=== PATIENT | female | born 1965 | race Caucasian/White ===

== ENCOUNTER 2023-07-12 00:49 | Inpatient (IN) | payer MEDICARE, OTHER ==
[~2023-07-12] VITALS: Ht 165.1 cm; Wt 74.8 kg
[2023-07-12] MEDS ORDERED: APIX5TAB PO (01:16)
[2023-07-12] MEDS ORDERED: ASPI81TA31 PO (01:16)
[2023-07-12] MEDS ORDERED: GABA-532 PO (01:16)
[2023-07-12] MEDS ORDERED: ATOR20TA PO (01:16)
[2023-07-12] MEDS ORDERED: METO25TA6 PO (01:16)
[2023-07-12] MEDS ORDERED: GABA600T12 PO (01:16)
[2023-07-12] MEDS ORDERED: DILT180T11 PO (01:16)
[2023-07-12] MEDS ORDERED: HYDR25TA4 PO (01:16)
[2023-07-12] MEDS ORDERED: ALPR1TAB7 PO (01:16)
[2023-07-12] MEDS ORDERED: LEVE750T4 PO (01:16)
[2023-07-12] MEDS ORDERED: ROPI1TAB6 PO (01:16)
[2023-07-12] MEDS ORDERED: FAMO-132 PO (01:16)
[2023-07-12] MEDS ORDERED: TIZA4TAB5 PO (01:16)
[2023-07-12] MEDS ORDERED: CIPR7.5D EACH EAR (01:16)
[2023-07-12] MEDS ORDERED: FURO40TA5 PO (01:16)
[2023-07-12] MEDS ORDERED: FLUT1BLS IH (01:16)
[2023-07-12] MEDS ORDERED: SERT100T PO (01:16)
[2023-07-12 01:59] LABS: BASOPHILS % (AUTO) 0.6 % (0.0-2.0); EOSINOPHILS # (AUTO) 0.1 K/uL (0.0-0.7); EOSINOPHILS % (AUTO) 0.7 % (0.0-7.0); HEMATOCRIT 38.3 % (31.2-41.9); HEMOGLOBIN 12.3 g/dL (10.9-14.3); LYMPHOCYTES % (AUTO) 12.6 % (20.5-51.5); MEAN CORPUSCULAR HEMOGLOBIN 28.9 uug (24.7-32.8); MEAN CORPUSCULAR HGB CONC 32 g/dL (32.3-35.6); MONOCYTES # (AUTO) 0.6 K/uL (0.1-1.30); NEUTROPHILS # (AUTO) 6.3 K/uL (1.8-8.9); NEUTROPHILS % (AUTO) 78.1 % (38.5-71.5); PLATELET COUNT (AUTO) 207 K/uL (179-408); RED BLOOD CELL COUNT(AUTO) 4.26 MIL/uL (3.63-4.92); RED CELL DISTRIBUTION WIDTH 15.1 % (12.3-17.7)
[2023-07-12] MEDS ORDERED: DILTIAZEM HCL IV 125 MG in IV NORMAL SALINE 100 ML IV PRN (02:00)
[2023-07-12] MEDS ORDERED: DILTIAZEM HCL 50 MG IV ONE (02:03)
[2023-07-12] MEDS ORDERED: DILTIAZEM HCL 25 MG IV ONE (02:03)
[2023-07-12 02:08] LABS: DIFFERENTIAL COMMENT 1
[2023-07-12 02:16] LABS: CALCIUM 8.9 mg/dL (8.5-10.1); CARBON DIOXIDE 24 mmol/L (21-32); CHLORIDE 106 mmol/L (98-107); CREATININE 1.2 mg/dL (0.6-1.3); GLUCOSE 91 mg/dL (74-106); POTASSIUM 3.7 mmol/L (3.5-5.1); SODIUM SERUM 140 mmol/L (136-145); UREA NITROGEN, BLOOD 33 mg/dL (7-18)
[2023-07-12 02:17] LABS: ETHANOL < 3 MG/DL (0-10)
[2023-07-12 02:28] LABS: ACETAMINOPHEN < 2.0 ug/mL (10-30); ALANINE AMINOTRANSFERASE 47 U/L (14-59); ALBUMIN 3.4 g/dL (3.4-5.0); ALKALINE PHOSPHATASE 102 U/L (50-136); ASPARTATE AMINOTRANSFERASE 55 U/L (15-37); BILIRUBIN,TOTAL 1.1 mg/dL (0.2-1.0); TOTAL PROTEIN, SERUM 6.8 g/dL (6.4-8.2)
[2023-07-12 03:26] LABS: *BLOOD, URINE NEGATIVE (NEGATIVE); *CLARITY,URINE CLEAR (CLEAR); *COLOR,URINE YELLOW (YELLOW); *KETONES,URINE TRACE (NEGATIVE); *PROTEIN,URINE 2+ (NEGATIVE); LEUKOCYTE ESTERASE ,URINE NEGATIVE (NEGATIVE); NITRITE, URINE NEGATIVE (NEGATIVE); PH,URINE 5.5 (5.0-8.0); UGLUCOSE NEGATIVE (NEGATIVE)
[2023-07-12 03:35] LABS: *BILIRUBIN,URIN 1+ (NEGATIVE)
[2023-07-12 04:31] LABS: *AMPHETAMINE, URINE POSITIVE (NEGATIVE); *BENZODIAZEPINE, URINE NEGATIVE (NEGATIVE); *CANNABINOID, URINE NEGATIVE (NEGATIVE); *COCCAINE, URINE NEGATIVE (NEGATIVE); *OPIATE, URINE POSITIVE (NEGATIVE); *PHENCYCLIDINE SCREEN,URINE NEGATIVE (NEGATIVE)
[2023-07-12 04:35] LABS: FENTANYL, URINE NEGATIVE (NEGATIVE)
[2023-07-12 06:16] LABS: *BARBITURATE, URINE NEGATIVE (NEGATIVE)
[2023-07-12] MEDS ORDERED: MAGNESIUM SULFATE/D5W 100 ML IV SCH (06:30)
[2023-07-12] MEDS ORDERED: MAGNESIUM SULFATE/D5W 100 ML ONE (06:38)
[2023-07-12] MEDS ORDERED: DILTIAZEM HCL CD 120 MG CAP.SR.24H PO ONE (09:12)
[2023-07-12] MEDS: DILTIAZEM HCL CD 120 MG CAP.SR.24H PO SCH (09:33)
[2023-07-12] MEDS ORDERED: IPRATROPIUM BROMIDE 0.5 MG/2.5 ML NEBU NEB PRN (15:30)
[2023-07-12] MEDS ORDERED: ALBUTEROL SULFATE 2.5 MG/3 ML NEBU NEB PRN (15:30)
[2023-07-12 16:20] VITALS: O2SAT 99
[2023-07-12] MEDS ORDERED: DILTIAZEM HCL 25 MG IV IV ONE (18:30)
[2023-07-12 18:53] VITALS: BP 138/96; TEMP 97.7; O2SAT 96
[2023-07-12 20:00] VITALS: BP 136/73; TEMP 97.7; O2SAT 97
[2023-07-12] MEDS ORDERED: LEVALBUTEROL HCL NEB 0.63 MG/3 ML NEBU NEB PRN (22:45)
[2023-07-12 23:25] VITALS: O2SAT 97
[2023-07-12 23:40] VITALS: O2SAT 97
[2023-07-13] VITALS: BP 142/70; TEMP 98; O2SAT 97
[2023-07-13 04:00] VITALS: BP 144/84; TEMP 98; O2SAT 97
[2023-07-13] MEDS: DILTIAZEM HCL CD 120 MG CAP.SR.24H PO SCH (09:26)
[2023-07-13] MEDS ORDERED: ALBUTEROL SULFATE 2.5 MG/3 ML NEBU NEB PRN (09:30)
[2023-07-13] MEDS ORDERED: risperiDONE 0.5 MG TABLET PO SCH (10:00)
[2023-07-13] MEDS: OXCARBAZEPINE 150 MG TABLET PO SCH ×2 (11:29→17:23)
[2023-07-13 12:00] VITALS: BP 153/66; O2SAT 95
[2023-07-13] MEDS ORDERED: DILTIAZEM HCL 90 MG TABLET PO ONE (12:00)
[2023-07-13] MEDS ORDERED: OXCA150T5 PO (12:03)
[2023-07-13] MEDS ORDERED: DILT120C87 PO (12:03)
[2023-07-13] MEDS ORDERED: DILTIAZEM HCL CD 120 MG CAP.SR.24H PO ONE (12:15)
[2023-07-13 14:06] VITALS: BP 140/75; TEMP 98; O2SAT 97
[2023-07-13 16:00] VITALS: BP 132/74; TEMP 98; O2SAT 96
[2023-07-13] MEDS ORDERED: OXCARBAZEPINE 150 MG TABLET PO SCH (17:00)
[2023-07-14] MEDS ORDERED: DILTIAZEM HCL CD 180 MG CAP.SR.24H PO SCH (09:00)
== END 2023-07-13 19:00 | DRG 918 ==
LOC: ER 00:57 → UNDOADMIN 09:13 → TRANSITION 09:13 → TELE3 17:05
PROVIDERS: ADMIT Nurse Practitioner Acute Care; ATTEND Nurse Practitioner Acute Care
DX: T43.651A Poisoning by methamphetamines accidental (unintentional), initial encounter (principal); I48.20 Chronic atrial fibrillation, unspecified; Z59.00 Homelessness unspecified; R45.851 Suicidal ideations; F15.10 Other stimulant abuse, uncomplicated; Y92.89 Other specified places as the place of occurrence of the external cause; E83.42 Hypomagnesemia; Z95.0 Presence of cardiac pacemaker; M25.531 Pain in right wrist; M25.551 Pain in right hip; Z91.81 History of falling; Z91.148 Patient's other noncompliance with medication regimen for other reason; Z86.73 Personal history of transient ischemic attack (TIA), and cerebral infarction without residual deficits; J44.9 Chronic obstructive pulmonary disease, unspecified; F25.0 Schizoaffective disorder, bipolar type; F41.9 Anxiety disorder, unspecified; G40.909 Epilepsy, unspecified, not intractable, without status epilepticus; F11.10 Opioid abuse, uncomplicated
CPT/HCPCS: 36415; 71045; 73502; 83735; 84484; 85025; 94664; G0378; G0480; J3475; J3490; J3590

== ENCOUNTER 2023-07-13 18:45 | Inpatient (IN) | payer MEDICARE, OTHER ==
[~2023-07-13] VITALS: Ht 172.7 cm; Wt 88.9 kg
[~2023-07-13 18:45] MED LIST: ALPR1TAB7 PO; APIX5TAB PO; ASPI81TA31 PO; ATOR20TA PO; CIPR7.5D EACH EAR; DILT120C87 PO; DILT180T11 PO; FAMO-132 PO; FLUT1BLS IH; FURO40TA5 PO; GABA-532 PO; GABA600T12 PO; HYDR25TA4 PO; LEVE750T4 PO; METO25TA6 PO; OXCA150T5 PO; ROPI1TAB6 PO; SERT100T PO; TIZA4TAB5 PO
[2023-07-13] MEDS ORDERED: MAGNESIUM HYDROXIDE 30 ML LIQUID UDC PO PRN (20:15)
[2023-07-13] MEDS: ACETAMINOPHEN 325 MG TABLET PO PRN (21:14)
[2023-07-13] MEDS: LORAZEPAM 1 MG TABLET PO PRN (21:14)
[2023-07-13 21:39] VITALS: BP 136/68; TEMP 97.2; O2SAT 96
[2023-07-14 08:28] VITALS: BP 147/91; TEMP 98; O2SAT 95
[2023-07-14 10:00] VITALS: O2SAT 97
[2023-07-14] MEDS ORDERED: risperiDONE 1 MG/ML UDC PO SCH (10:00)
[2023-07-14] MEDS: ALBUTEROL SULFATE 2.5 MG/3 ML NEBU NEB PRN (10:02)
[2023-07-14 10:10] VITALS: O2SAT 99
[2023-07-14] MEDS: NICOTINE 14 MG/24HR PATCH TD SCH (16:49)
[2023-07-14] MEDS: APIXABAN 5 MG TABLET PO SCH (16:50)
[2023-07-14] MEDS: risperiDONE 0.5 MG TABLET PO SCH ×2 (16:50→21:02)
[2023-07-14] MEDS: FAMOTIDINE 20 MG TABLET PO SCH (16:51)
[2023-07-14] MEDS: FLUTICASONE/VILANTEROL 1 EACH BLST.W.DEV IH SCH (17:13)
[2023-07-14] MEDS: FUROSEMIDE 40 MG TABLET PO SCH (17:13)
[2023-07-14] MEDS: DILTIAZEM HCL CD 120 MG CAP.SR.24H PO SCH (17:14)
[2023-07-14 17:52] VITALS: BP 144/80; TEMP 97.6; O2SAT 98
[2023-07-14 20:00] VITALS: BP 148/90; TEMP 98.7; O2SAT 98
[2023-07-14] MEDS: levETIRAcetam 250 MG TABLET PO SCH (21:02)
[2023-07-14] MEDS: ATORVASTATIN 20 MG TABLET PO SCH (21:02)
[2023-07-14] MEDS: LORAZEPAM 1 MG TABLET PO PRN (22:47)
[2023-07-14] MEDS: ACETAMINOPHEN 325 MG TABLET PO PRN (22:47)
[2023-07-14] MEDS ORDERED: OLANZAPINE 10 MG VIAL IM ONE (23:15)
[2023-07-15] VITALS (9 sets, daily range): BP systolic 110–136; BP diastolic 63–76; TEMP 97.6–98.6; O2SAT 94–100
[2023-07-15] MEDS ORDERED: ALBUTEROL SULFATE 2.5 MG/3 ML NEBU ONE (00:03)
[2023-07-15] MEDS: ALBUTEROL SULFATE 2.5 MG/3 ML NEBU NEB PRN ×3 (00:07→20:32)
[2023-07-15] MEDS: TEMAZEPAM 7.5 MG CAPSULE PO PRN (00:37)
[2023-07-15] MEDS: LORAZEPAM 1 MG TABLET PO PRN (05:36)
[2023-07-15] MEDS: FAMOTIDINE 20 MG TABLET PO SCH ×2 (05:37→17:48)
[2023-07-15] MEDS: FUROSEMIDE 40 MG TABLET PO SCH ×2 (09:00→09:37)
[2023-07-15] MEDS: FLUTICASONE/VILANTEROL 1 EACH BLST.W.DEV IH SCH (09:25)
[2023-07-15] MEDS: risperiDONE 0.5 MG TABLET PO SCH ×3 (09:25→21:00)
[2023-07-15] MEDS: ASPIRIN 81 MG TAB.CHEW PO SCH (09:25)
[2023-07-15] MEDS: NICOTINE 14 MG/24HR PATCH TD SCH (09:26)
[2023-07-15] MEDS: levETIRAcetam 250 MG TABLET PO SCH ×2 (09:26→20:59)
[2023-07-15] MEDS: DILTIAZEM HCL CD 120 MG CAP.SR.24H PO SCH (09:27)
[2023-07-15] MEDS: APIXABAN 5 MG TABLET PO SCH ×2 (09:29→17:50)
[2023-07-15 09:37] LABS: ALBUMIN 3.1 g/dL (3.4-5.0); BILIRUBIN,DIRECT 0.2 mg/dL (0.0-0.2); BILIRUBIN,TOTAL 0.8 mg/dL (0.2-1.0); TOTAL PROTEIN, SERUM 6.6 g/dL (6.4-8.2)
[2023-07-15] MEDS: ATORVASTATIN 20 MG TABLET PO SCH (20:59)
[2023-07-16] MEDS: TEMAZEPAM 7.5 MG CAPSULE PO PRN (02:20)
[2023-07-16 08:30] VITALS: BP 136/83; TEMP 98.7; O2SAT 99
[2023-07-16] MEDS: NICOTINE 14 MG/24HR PATCH TD SCH (09:09)
[2023-07-16] MEDS: FAMOTIDINE 20 MG TABLET PO SCH ×2 (09:09→17:07)
[2023-07-16] MEDS: levETIRAcetam 250 MG TABLET PO SCH ×2 (09:09→21:08)
[2023-07-16] MEDS: FUROSEMIDE 40 MG TABLET PO SCH (09:10)
[2023-07-16] MEDS: APIXABAN 5 MG TABLET PO SCH ×2 (09:10→17:08)
[2023-07-16] MEDS: ASPIRIN 81 MG TAB.CHEW PO SCH (09:14)
[2023-07-16] MEDS: DILTIAZEM HCL CD 120 MG CAP.SR.24H PO SCH (09:14)
[2023-07-16] MEDS: risperiDONE 0.5 MG TABLET PO SCH ×2 (09:14→21:07)
[2023-07-16] MEDS: FLUTICASONE/VILANTEROL 1 EACH BLST.W.DEV IH SCH (09:17)
[2023-07-16] MEDS: LORAZEPAM 1 MG TABLET PO PRN (12:49)
[2023-07-16 14:19] VITALS: O2SAT 95
[2023-07-16] MEDS: ALBUTEROL SULFATE 2.5 MG/3 ML NEBU NEB PRN (14:19)
[2023-07-16 14:32] VITALS: O2SAT 100
[2023-07-16 18:02] VITALS: BP 126/60; TEMP 97.6; O2SAT 97
[2023-07-16 19:59] VITALS: BP 130/68; TEMP 97.9; O2SAT 96
[2023-07-16] MEDS: ATORVASTATIN 20 MG TABLET PO SCH (21:08)
[2023-07-17] VITALS (7 sets, daily range): BP systolic 94–128; BP diastolic 61–74; TEMP 97.6–98.1; O2SAT 95–99
[2023-07-17] MEDS: ALBUTEROL SULFATE 2.5 MG/3 ML NEBU NEB PRN ×2 (06:30→14:37)
[2023-07-17] MEDS: ASPIRIN 81 MG TAB.CHEW PO SCH (10:45)
[2023-07-17] MEDS: FUROSEMIDE 40 MG TABLET PO SCH (10:46)
[2023-07-17] MEDS: levETIRAcetam 250 MG TABLET PO SCH ×2 (10:46→20:34)
[2023-07-17] MEDS: FAMOTIDINE 20 MG TABLET PO SCH ×2 (10:46→17:42)
[2023-07-17] MEDS: risperiDONE 0.5 MG TABLET PO SCH ×2 (10:46→20:34)
[2023-07-17] MEDS: NICOTINE 14 MG/24HR PATCH TD SCH (10:47)
[2023-07-17] MEDS: FLUTICASONE/VILANTEROL 1 EACH BLST.W.DEV IH SCH (10:49)
[2023-07-17] MEDS: APIXABAN 5 MG TABLET PO SCH ×2 (10:54→17:42)
[2023-07-17] MEDS: DILTIAZEM HCL CD 120 MG CAP.SR.24H PO SCH (10:55)
[2023-07-17] MEDS: MAG HYDROX/AL HYDROX/SIMETH 30 ML LIQUID UDC PO PRN (12:21)
[2023-07-17] MEDS: ACETAMINOPHEN 325 MG TABLET PO PRN (17:44)
[2023-07-17] MEDS: ATORVASTATIN 20 MG TABLET PO SCH (20:34)
[2023-07-18] VITALS (8 sets, daily range): BP systolic 107–142; BP diastolic 48–79; TEMP 97.8–98.1; O2SAT 95–99
[2023-07-18] MEDS ORDERED: ALBUTEROL SULFATE 2.5 MG/3 ML NEBU ONE (02:43)
[2023-07-18] MEDS: ALBUTEROL SULFATE 2.5 MG/3 ML NEBU NEB PRN ×2 (02:45→12:30)
[2023-07-18] MEDS: DILTIAZEM HCL CD 120 MG CAP.SR.24H PO SCH (08:12)
[2023-07-18] MEDS: LORAZEPAM 1 MG TABLET PO PRN (08:12)
[2023-07-18] MEDS: FAMOTIDINE 20 MG TABLET PO SCH ×2 (08:12→17:22)
[2023-07-18] MEDS: APIXABAN 5 MG TABLET PO SCH ×2 (08:13→17:23)
[2023-07-18] MEDS: FUROSEMIDE 40 MG TABLET PO SCH (08:14)
[2023-07-18] MEDS: levETIRAcetam 250 MG TABLET PO SCH ×2 (08:14→20:41)
[2023-07-18] MEDS: FLUTICASONE/VILANTEROL 1 EACH BLST.W.DEV IH SCH (08:14)
[2023-07-18] MEDS: risperiDONE 0.5 MG TABLET PO SCH ×3 (08:14→20:41)
[2023-07-18] MEDS: ASPIRIN 81 MG TAB.CHEW PO SCH (08:14)
[2023-07-18] MEDS: NICOTINE 14 MG/24HR PATCH TD SCH (09:00)
[2023-07-18] MEDS: OXCARBAZEPINE 150 MG TABLET PO SCH ×2 (13:51→17:22)
[2023-07-18] MEDS: ATORVASTATIN 20 MG TABLET PO SCH (20:41)
[2023-07-19 00:02] VITALS: O2SAT 99
[2023-07-19 00:05] VITALS: O2SAT 99
[2023-07-19] MEDS: ALBUTEROL SULFATE 2.5 MG/3 ML NEBU NEB PRN (00:25)
[2023-07-19 07:45] VITALS: BP 127/77; TEMP 98; O2SAT 99
[2023-07-19] MEDS: OXCARBAZEPINE 150 MG TABLET PO SCH ×3 (10:41→18:27)
[2023-07-19] MEDS: NICOTINE 14 MG/24HR PATCH TD SCH (10:41)
[2023-07-19] MEDS: ASPIRIN 81 MG TAB.CHEW PO SCH (10:42)
[2023-07-19] MEDS: APIXABAN 5 MG TABLET PO SCH ×2 (10:42→18:27)
[2023-07-19] MEDS: FAMOTIDINE 20 MG TABLET PO SCH ×2 (10:42→18:27)
[2023-07-19] MEDS: levETIRAcetam 250 MG TABLET PO SCH ×2 (10:42→20:33)
[2023-07-19] MEDS: FUROSEMIDE 40 MG TABLET PO SCH (10:42)
[2023-07-19] MEDS: DILTIAZEM HCL CD 120 MG CAP.SR.24H PO SCH (10:44)
[2023-07-19] MEDS: FLUTICASONE/VILANTEROL 1 EACH BLST.W.DEV IH SCH (10:46)
[2023-07-19] MEDS: risperiDONE 0.5 MG TABLET PO SCH ×3 (10:46→20:33)
[2023-07-19 15:44] VITALS: BP_SYST 108; BP_SYST 98; BP_DIAS 53; BP_DIAS 61; TEMP 98; O2SAT 98; O2SAT 99
[2023-07-19] MEDS: MAG HYDROX/AL HYDROX/SIMETH 30 ML LIQUID UDC PO PRN (18:26)
[2023-07-19 20:00] VITALS: BP 111/67; TEMP 98; O2SAT 96
[2023-07-19] MEDS: ATORVASTATIN 20 MG TABLET PO SCH (20:33)
[2023-07-19] MEDS: LORAZEPAM 1 MG TABLET PO PRN (23:26)
[2023-07-20] MEDS: ALBUTEROL SULFATE 2.5 MG/3 ML NEBU NEB PRN (01:57)
[2023-07-20 02:00] VITALS: O2SAT 98
[2023-07-20 02:15] VITALS: O2SAT 99
[2023-07-20 07:58] VITALS: BP 109/55; TEMP 98; O2SAT 98
[2023-07-20] MEDS: levETIRAcetam 250 MG TABLET PO SCH ×2 (08:42→20:48)
[2023-07-20] MEDS: FLUTICASONE/VILANTEROL 1 EACH BLST.W.DEV IH SCH (08:42)
[2023-07-20] MEDS: risperiDONE 0.5 MG TABLET PO SCH ×3 (08:42→20:48)
[2023-07-20] MEDS: OXCARBAZEPINE 150 MG TABLET PO SCH ×3 (08:42→17:59)
[2023-07-20] MEDS: NICOTINE 14 MG/24HR PATCH TD SCH (08:42)
[2023-07-20] MEDS: FAMOTIDINE 20 MG TABLET PO SCH ×2 (08:42→17:57)
[2023-07-20] MEDS: FUROSEMIDE 40 MG TABLET PO SCH (08:42)
[2023-07-20] MEDS: ASPIRIN 81 MG TAB.CHEW PO SCH (08:42)
[2023-07-20] MEDS: APIXABAN 5 MG TABLET PO SCH ×2 (08:44→17:58)
[2023-07-20] MEDS: DILTIAZEM HCL CD 120 MG CAP.SR.24H PO SCH (08:46)
[2023-07-20 15:27] VITALS: BP 100/49; TEMP 97.6; O2SAT 98
[2023-07-20 20:00] VITALS: BP 120/66; TEMP 97.6; O2SAT 94
[2023-07-20] MEDS: ATORVASTATIN 20 MG TABLET PO SCH (20:48)
[2023-07-21] MEDS: MAG HYDROX/AL HYDROX/SIMETH 30 ML LIQUID UDC PO PRN (00:30)
[2023-07-21] MEDS: ALBUTEROL SULFATE 2.5 MG/3 ML NEBU NEB PRN (02:48)
[2023-07-21 02:50] VITALS: O2SAT 98
[2023-07-21 03:05] VITALS: O2SAT 99
[2023-07-21 08:44] VITALS: BP 123/68; TEMP 98.2; O2SAT 99
[2023-07-21] MEDS: ASPIRIN 81 MG TAB.CHEW PO SCH (09:26)
[2023-07-21] MEDS: OXCARBAZEPINE 150 MG TABLET PO SCH ×3 (09:26→17:23)
[2023-07-21] MEDS: levETIRAcetam 250 MG TABLET PO SCH (09:26)
[2023-07-21] MEDS: FAMOTIDINE 20 MG TABLET PO SCH ×2 (09:27→17:23)
[2023-07-21] MEDS: FUROSEMIDE 40 MG TABLET PO SCH (09:27)
[2023-07-21] MEDS: DILTIAZEM HCL CD 120 MG CAP.SR.24H PO SCH (09:29)
[2023-07-21] MEDS: FLUTICASONE/VILANTEROL 1 EACH BLST.W.DEV IH SCH (09:29)
[2023-07-21] MEDS: NICOTINE 14 MG/24HR PATCH TD SCH (09:29)
[2023-07-21] MEDS: APIXABAN 5 MG TABLET PO SCH ×2 (10:35→17:24)
[2023-07-21] MEDS: risperiDONE 0.5 MG TABLET PO SCH ×2 (10:36→14:00)
[2023-07-21 15:22] VITALS: BP 117/66; TEMP 98; O2SAT 96
== END 2023-07-21 18:10 | DRG 885 ==
LOC: GPS 18:45
PROVIDERS: ADMIT Psychiatry & Neurology Psychosomatic Medicine; ATTEND Nurse Practitioner Acute Care
DX: F25.0 Schizoaffective disorder, bipolar type (principal); I48.20 Chronic atrial fibrillation, unspecified; R45.851 Suicidal ideations; Z59.00 Homelessness unspecified; F41.9 Anxiety disorder, unspecified; F15.10 Other stimulant abuse, uncomplicated; J44.9 Chronic obstructive pulmonary disease, unspecified; T43.621D Poisoning by amphetamines, accidental (unintentional), subsequent encounter; F11.10 Opioid abuse, uncomplicated; E83.42 Hypomagnesemia; G40.909 Epilepsy, unspecified, not intractable, without status epilepticus; Z91.414 Personal history of adult intimate partner abuse; Z95.0 Presence of cardiac pacemaker; Z91.199 Patient's noncompliance with other medical treatment and regimen due to unspecified reason; Z88.0 Allergy status to penicillin; Z91.010 Allergy to peanuts; Z86.73 Personal history of transient ischemic attack (TIA), and cerebral infarction without residual deficits; Z79.899 Other long term (current) drug therapy; Z79.01 Long term (current) use of anticoagulants; M25.551 Pain in right hip; Z91.81 History of falling; R55 Syncope and collapse
CPT/HCPCS: 36415; 94640; 94664; 94760; J2358